=== PATIENT | female | born 2005 | race Caucasian/White ===

== ENCOUNTER 2024-07-06 03:25 | Emergency (ER) | payer BC ==
[2024-07-06] MEDS: HYDROmorphone 0.5 MG/0.5 ML Syringe IVPUSH ONE (03:51)
[2024-07-06 04:03] LABS: BASOPHILS ABSOLUTE AUTO 0.1 K/mm3 (0.0-0.2); BASOPHILS PERCENT AUTO 0.5 % (0.0-1.0); EOSINOPHILS PERCENT AUTO 0.1 % (0.0-6.0); HEMATOCRIT 44.5 % (37.0-47.0); HEMOGLOBIN 14.7 gm/dl (12.0-16.0); IMMATURE GRAN ABSOLUTE AUTO 0.06 K/mm3 (0.00-0.05); IMMATURE GRAN PERCENT AUTO 0.4 % (0.0-0.4); LYMPHOCYTES ABSOLUTE AUTO 1.6 K/mm3 (1.0-4.8); LYMPHOCYTES PERCENT AUTO 10.9 % (24.0-44.0); MEAN CORPUSCULAR HEMOGLOBIN 27.6 pg (28.0-32.0); MEAN CORPUSCULAR VOLUME 83.6 fl (83.0-99.0); MEAN PLATELET VOLUME 10.3 fl (9.4-12.3); MONOCYTES ABSOLUTE AUTO 0.5 K/mm3 (0.0-0.8); MONOCYTES PERCENT AUTO 3.2 % (0.0-8.0); NEUTROPHILS ABSOLUTE AUTO 12.7 K/mm3 (1.8-7.7); NEUTROPHILS PERCENT AUTO 84.9 % (41.0-71.0); PLATELET COUNT,PLT 265 K/mm3 (150-400); RED BLOOD CELL COUNT 5.32 M/mm3 (4.10-5.30); WHITE BLOOD CELL COUNT,WBC 14.94 K/mm3 (3.9-11.3)
[2024-07-06 04:23] LABS: ANION GAP 17.7 (5-15); CARBON DIOXIDE,CO2 21 mEq/L (21-32); CHLORIDE,CL 103 mEq/L (98-107); GLUCOSE RANDOM 146 mg/dL (70-99); POTASSIUM,K 3.7 mEq/L (3.5-5.1); SODIUM,NA 138 mEq/L (136-145)
[2024-07-06 04:24] LABS: BLOOD UREA NITROGEN,BUN 9 mg/dL (7-18); ESTIMATED GFR 82 mL/min (>60)
[2024-07-06 04:25] LABS: A/G RATIO 1.2 (1-2); ALBUMIN 4.2 g/dl (3.4-5.0); CALCIUM 9.4 mg/dL (8.5-10.1); PROTEIN TOTAL,TP 7.6 g/dl (6.4-8.2)
[2024-07-06 04:26] LABS: ALANINE AMINOTRANSFERASE,ALT 24 U/L (14-59); ALKALINE PHOSPHATASE 41 U/L (46-116); BILIRUBIN TOTAL 0.6 mg/dL (0.2-1.0)
[2024-07-06 04:27] LABS: ASPARTATE AMNIOTRANSFERASE,AST 19 U/L (15-37); LIPASE 15 U/L (16-77)
[2024-07-06] MEDS: Iopamidol 612 MG/ML 100 ML Bottle IVPUSH ONE (04:33)
[2024-07-06] MEDS: Sodium Chloride 0.9% 10 ML Syringe FLUSH ONE (04:33)
[2024-07-06] MEDS: Pantoprazole 40 MG Vial IVPUSH ONE (05:22)
== END 2024-07-06 05:51 | disposition home or self-care (01) ==
LOC: JD.ED 03:25
DX: A08.4 Viral intestinal infection, unspecified (principal); R10.11 Right upper quadrant pain
CPT/HCPCS: 36415; 74177; 76705; 80053; 83690; 84703; 85025; 96374; 96375; 99284; J1171; J2470; Q9967; 99283